=== PATIENT | female | born 1935 | race Caucasian/White ===

== ENCOUNTER → 2017-12-20 08:59 | Outpatient (CLI) | payer MEDICARE, OTHER | END | disposition home or self-care (01) | LOC: D.US 08:59 | DX: T85.44XA Capsular contracture of breast implant, initial encounter (principal) ==

== ENCOUNTER → 2018-08-12 17:42 | Outpatient (CLI) | payer MEDICARE, OTHER | END | disposition home or self-care (01) | LOC: D.MAMMO 09:00 | DX: Z85.3 Personal history of malignant neoplasm of breast (principal) ==

== ENCOUNTER → 2018-11-14 10:01 | Outpatient (CLI) | payer MEDICARE, OTHER | END | disposition home or self-care (01) | LOC: D.CT 10:01 | PROVIDERS: ATTEND Family Medicine | DX: G45.9 Transient cerebral ischemic attack, unspecified (principal) ==

== ENCOUNTER 2019-03-05 01:25 | Emergency (ER) | payer MEDICARE, OTHER ==
[~2019-03-05] VITALS: Ht 149.9 cm; Wt 52.3 kg
[2019-03-05 01:30] VITALS: Ht 149.9 cm; Wt 52.3 kg
[2019-03-05] MEDS ORDERED: TRIAMTERENE-HC1 EAC6 PO (01:33)
[2019-03-05] MEDS ORDERED: NORVASC5 MG PO (01:33)
[2019-03-05] MEDS ORDERED: LISINOPRIL10 MG PO (01:34)
[2019-03-05] MEDS ORDERED: ELAVIL10 MG PO (01:34)
[2019-03-05] MEDS ORDERED: KEFLEX500 MG PO (02:30)
[2019-03-05 03:05] VITALS: BP 136/71
== END 2019-03-05 03:05 | disposition home or self-care (01) ==
LOC: D.ER 01:25
DX: M54.2 Cervicalgia (principal); S09.90XA Unspecified injury of head, initial encounter; W18.30XA Fall on same level, unspecified, initial encounter; Y93.89 Activity, other specified; Y92.89 Other specified places as the place of occurrence of the external cause; S01.91XA Laceration without foreign body of unspecified part of head, initial encounter

== ENCOUNTER 2020-11-02 14:05 | Outpatient (CLI) | payer MEDICARE, OTHER ==
[2019-03-05 01:30] VITALS: BMI 23.2
[~2020-11-02 14:05] MED LIST: ELAVIL10 MG PO; KEFLEX500 MG PO; LISINOPRIL10 MG PO; NORVASC5 MG PO; TRIAMTERENE-HC1 EAC6 PO
== END 2020-11-02 23:59 | disposition home or self-care (01) ==
LOC: D.MAMMO 14:05
PROVIDERS: ATTEND Family Medicine
DX: Z12.31 Encounter for screening mammogram for malignant neoplasm of breast (principal)